=== PATIENT | male | born 1995 | race Two or more races ===

== ENCOUNTER 2019-08-13 07:02 | Emergency (ER) | payer BC ==
[~2019-08-13] VITALS: Ht 182.9 cm; Wt 172.4 kg
[2019-08-13 07:30] VITALS: BP 127/85
--- NOTE | 2019-08-13 07:30 | NUR ---
ED Nurse Note: Pt ambulated from home with complaint of abd pain this morning. Pt is AAOx4 with stable vital signs. No cardiac/pulmonary distress noted. Placed patient on youth nutritional monitor.
--- NOTE | 2019-08-13 07:34 | Emergency Room Report ---
History of Present Illness General Chief Complaint: Abdominal Pain Source: Patient, Medical Record Present Illness HPI Patient is a 24-year-old male presents after increased right-sided abdominal pain. Patient had appendectomy approximately 10 years ago. Reports having increased sharp pain. This had sudden onset. Denies any hematuria or bloody stools. He had not been vomiting. Pain did not radiate. There is no change with ambulation. He denies any diarrhea.Patient denies any recent trauma. Allergies: Coded Allergies: No Known Allergies (Unverified , 08/13/19) Patient History Past Medical History: see triage record Reviewed Nursing Documentation: PMH: Agreed; PSxH: Agreed Nursing Documentation-PMH Hx Gastrointestinal Problems: Yes - appendectomy 2009 Review of Systems All Other Systems: negative except mentioned in HPI Physical Exam Vital Signs Date Time Temp Pulse Resp B/P (MAP) Pulse Ox O2 Delivery O2 Flow Rate FiO2 08/13/19 07:09 98.4 85 18 127/81 (96) 96 Room Air Sp02 EP Interpretation: reviewed, normal General Appearance: normal inspection, well appearing, no apparent distress, alert, GCS 15, obese Head: atraumatic ENT: normal ENT inspection, hearing grossly normal, normal voice Neck: normal inspection, full range of motion, supple, no bony tend Respiratory: normal inspection, lungs clear, normal breath sounds, no respiratory distress, no retraction, no wheezing Cardiovascular #1: regular rate, rhythm, no edema Gastrointestinal: normal inspection, normal bowel sounds, non tender, soft, no guarding, no hernia Genitourinary: no CVA tenderness Musculoskeletal: normal inspection, back normal, normal range of motion Neurologic: normal inspection, alert, oriented x3, responsive, 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 Differential diagnoses included ischemic bowel, appendicitis, perforated viscus, abdominal aortic aneurysm, inferior myocardial infarction, viral gastroenteritis among others.Because patient's complexity laboratory testing was ordered. Laboratory testing showed . Patient does not appear to have any evidence of incarcerated hernia. Last Vital Signs Date Time Temp Pulse Resp B/P (MAP) Pulse Ox O2 Delivery O2 Flow Rate FiO2 08/13/19 07:09 98.4 85 18 127/81 (96) 96 Room Air Status: improved Disposition: HOME, SELF-CARE Condition: Stable Referrals: NOT CHOSEN IPA/,REFERRING (PCP) Jose Bassett MD Aug 13, 2019 07:34
[2019-08-13] MEDS ORDERED: Ketorolac 30mg Inj IV ONE (07:45)
[2019-08-13 08:01] LABS: APPEARANCE,URINE CLOUDY; BILIRUBIN, URINE NEGATIVE (NEGATIVE); GLUCOSE, URINE (UA) NEGATIVE (NEGATIVE); KETONES,URINE NEGATIVE (NEGATIVE); LEUKOCYTE ESTERASE ,URINE 1+ (NEGATIVE); NITRITE,URINE NEGATIVE (NEGATIVE); PH,URINE 5 (4.5-8.0); PROTEIN,URINE 2+ (NEGATIVE); UROBILINOGEN,URINE NORMAL MG/DL (0.0-1.0)
[2019-08-13 08:03] LABS: COLOR,URINE YELLOW
[2019-08-13 08:05] LABS: BASOPHILS % (AUTO) 0.9 % (0.0-2.0); EOSINOPHILS % (AUTO) 2.5 % (0.0-3.0); HEMATOCRIT 44.5 % (42.0-52.0); HEMOGLOBIN 14.4 G/DL (14.2-18.0); LYMPHOCYTES % (AUTO) 26.9 % (20.0-45.0); MEAN CORPUSCULAR VOLUME 82 FL (80-99); MONOCYTES % (AUTO) 5.6 % (1.0-10.0); NEUTROPHILS % (AUTO) 64.2 % (45.0-75.0); PLATELET COUNT 281 K/UL (150-450); RED CELL DISTRIBUTION WIDTH 12.6 % (11.6-14.8); WHITE BLOOD COUNT 10.1 K/UL (4.8-10.8)
[2019-08-13 08:19] LABS: ANION GAP 13 mmol/L (5-15); BLOOD UREA NITROGEN 13 mg/dL (7-18); CALCIUM 8.7 MG/DL (8.5-10.1); CARBON DIOXIDE 23 MMOL/L (21-32); CHLORIDE 105 MMOL/L (98-107); INR 0.9 (0.9-1.1); POTASSIUM 3.7 MMOL/L (3.5-5.1); SODIUM 141 MMOL/L (136-145)
[2019-08-13 08:23] LABS: ALANINE AMINOTRANSFERASE 37 U/L (12-78); ALBUMIN 3.6 G/DL (3.4-5.0); ALBUMIN/GLOBULIN RATIO 0.9 (1.0-2.7); ALKALINE PHOSPHATASE 92 U/L (46-116); ASPARTATE AMINO TRANSFERASE 10 U/L (15-37); BILIRUBIN,TOTAL 0.2 MG/DL (0.2-1.0)
[2019-08-13 10:04] VITALS: BP 142/78
--- NOTE | 2019-08-13 10:17 | NUR ---
ED Nurse Note: ERMD at bedside.
[2019-08-13] MEDS ORDERED: IBUPROFEN600 MG ORAL (10:19)
[2019-08-13] MEDS ORDERED: NORCO 5-325 TA1 EACH ORAL ×2 (10:19→10:20)
--- NOTE | 2019-08-13 10:35 | NUR ---
ER DISCHARGE NOTE: Patient is cleared to be discharged per RAYMUNDO Bassett, pt is aox4, on room air, with stable vital signs. pt was given dc and prescription instructions, pt was able to verbalize understanding, pt id band and iv site removed without complications. pt is able to ambulate with steady gait. pt took all belongings.
[2019-08-13 10:41] VITALS: BP 142/78
== END 2019-08-13 10:35 | disposition home or self-care (01) ==
LOC: EMR 07:31
DX: R10.9 Unspecified abdominal pain (principal); Z90.89 Acquired absence of other organs
CPT/HCPCS: 36415; 80053; 81003; 83690; 85025; 85610; 85730; 86850; 86900; 86901; 96361; 96374; 96375; 99284; J1885; J2405; J7030